=== PATIENT | female | born 1945 | race Caucasian/White ===

== ENCOUNTER 2019-09-07 10:57 | Emergency (ER) | payer MEDICARE ==
[~2019-09-07] VITALS: Ht 162.6 cm; Wt 57.8 kg
[2019-09-07 13:55] LABS: BASOPHILS % (AUTO) 0.6 % (0-1); EOSINOPHILS # (AUTO) 0.1 X10'3 (0-0.9); EOSINOPHILS % (AUTO) 1.5 % (0-6); HEMATOCRIT 39.2 % (35.0-45.0); HEMOGLOBIN 13.5 g/dl (12.0-16.0); LYMPHOCYTES # (AUTO) 1.5 X10'3 (1.1-4.8); LYMPHOCYTES % (AUTO) 20.8 % (21-51); MEAN CORPUSCULAR HGB CONC 34.5 g/dL (33.0-36.5); MEAN PLATELET VOLUME 7.6 FL (7.4-10.4); MONOCYTES # (AUTO) 0.7 X10'3 (0-0.9); MONOCYTES % (AUTO) 9.5 % (2-12); NEUTROPHILS # (AUTO) 4.7 X10'3 (1.8-7.7); NEUTROPHILS % (AUTO) 67.6 % (42-75); PLATELET COUNT 208 X10'3 (140-440); RED BLOOD COUNT 4.22 X10'6 (4.20-5.60); RED CELL DISTRIBUTION WIDTH 13.4 % (11.5-14.5)
[2019-09-07 14:09] LABS: ALANINE AMINOTRANSFERASE 19 U/L (12-78); ALBUMIN 3.4 G/DL (3.4-5.0); ALKALINE PHOSPHATASE 60 IU/L (46-116); ANION GAP 7 (8-16); ASPARTATE AMINO TRANSFERASE 17 U/L (10-37); BILIRUBIN,TOTAL 0.4 MG/DL (0.1-1.0); BLOOD UREA NITROGEN 22 MG/DL (7-18); BUN/CREATININE RATIO 23.2 (6.6-38.0); CALCIUM 9.2 MG/DL (8.5-10.1); CHLORIDE 103 MMOL/L (99-107); CREATININE 0.95 MG/DL (0.40-0.90); GLUCOSE 88 MG/DL (70-104); MAGNESIUM 1.9 MG/DL (1.5-2.4); POTASSIUM 3.9 MMOL/L (3.5-5.1); SODIUM 141 MMOL/L (135-145); TOTAL CARBON DIOXIDE 31.5 MMOL/L (24-32); TOTAL PROTEIN 6.9 G/DL (6.4-8.2); eGFR 58 ML/MIN
[2019-09-07 17:00] VITALS: BP 154/57
== END 2019-09-07 18:10 | disposition home or self-care (01) ==
LOC: ER 10:58
DX: M25.511 Pain in right shoulder (principal); R20.2 Paresthesia of skin; R20.0 Anesthesia of skin; I10 Essential (primary) hypertension; Z88.2 Allergy status to sulfonamides; Z98.890 Other specified postprocedural states; Z90.49 Acquired absence of other specified parts of digestive tract
CPT/HCPCS: 36415; 80053; 83735; 84484; 85025; 93005; 99284

== ENCOUNTER 2020-09-20 09:03 | Emergency (ER) | payer MEDICARE ==
[~2020-09-20] VITALS: Ht 162.6 cm; Wt 56.8 kg
[2020-09-20 09:25] VITALS: BP 142/78
== END 2020-09-20 11:00 | disposition home or self-care (01) ==
LOC: ER 09:04
DX: J02.9 Acute pharyngitis, unspecified (principal); B34.9 Viral infection, unspecified; R42 Dizziness and giddiness; Z20.828 Contact with and (suspected) exposure to other viral communicable diseases; I10 Essential (primary) hypertension; Z90.89 Acquired absence of other organs; Z88.5 Allergy status to narcotic agent; Z88.2 Allergy status to sulfonamides
CPT/HCPCS: 36415; 87635; 99283

== ENCOUNTER 2023-07-07 17:16 | Emergency (ER) | payer MEDICARE ==
[~2023-07-07] VITALS: Ht 160 cm; Wt 60.0 kg
[2023-07-07 17:26] VITALS: TEMP 98.8
[2023-07-07 17:34] LABS: BASOPHILS % (AUTO) 0.7 % (0-1); EOSINOPHILS # (AUTO) 0.1 X10'3 (0-0.9); EOSINOPHILS % (AUTO) 0.9 % (0-6); HEMATOCRIT 41.6 % (35.0-45.0); HEMOGLOBIN 13.9 g/dl (12.0-16.0); LYMPHOCYTES # (AUTO) 1.3 X10'3 (1.1-4.8); LYMPHOCYTES % (AUTO) 18.6 % (21-51); MEAN CORPUSCULAR HEMOGLOBIN 31.4 PG (27.0-31.0); MEAN CORPUSCULAR HGB CONC 33.5 g/dL (33.0-36.5); MEAN CORPUSCULAR VOLUME 93.7 FL (78-98); MEAN PLATELET VOLUME 7.4 FL (7.4-10.4); MONOCYTES # (AUTO) 0.8 X10'3 (0-0.9); MONOCYTES % (AUTO) 10.9 % (2-12); NEUTROPHILS % (AUTO) 68.9 % (42-75); PLATELET COUNT 211 X10'3 (140-440); RED BLOOD COUNT 4.44 X10'6 (4.20-5.60); RED CELL DISTRIBUTION WIDTH 13.3 % (11.5-14.5); WHITE BLOOD COUNT 7.2 X10'3 (4.5-11.0)
[2023-07-07 17:47] LABS: ALANINE AMINOTRANSFERASE 21 U/L (12-78); ALBUMIN 3.8 G/DL (3.4-5.0); ALBUMIN/GLOBULIN RATIO 1.1 (1.1-1.5); ALKALINE PHOSPHATASE 88 IU/L (46-116); ANION GAP 11 (8-16); ASPARTATE AMINO TRANSFERASE 24 U/L (10-37); BILIRUBIN,TOTAL 0.3 MG/DL (0.1-1.0); BLOOD UREA NITROGEN 16 MG/DL (7-18); BUN/CREATININE RATIO 14.4 (10.0-20.0); CALCIUM 9.6 MG/DL (8.5-10.1); CHLORIDE 103 MMOL/L (99-107); CREATININE 1.11 MG/DL (0.40-0.90); GLUCOSE 113 MG/DL (70-104); POTASSIUM 3.9 MMOL/L (3.5-5.1); SODIUM 143 MMOL/L (135-145); TOTAL CARBON DIOXIDE 28.7 MMOL/L (24-32); TOTAL PROTEIN 7.4 G/DL (6.4-8.2); eCRCL 35 ML/MIN; eGFR 48 ML/MIN
[2023-07-07 17:56] LABS: PRO BRAIN NATRIURETIC PEPTIDE 512 PG/ML (0-450)
[2023-07-07 22:34] LABS: FREE T4 (FREE THYROXINE) 0.91 NG/DL (0.73-1.40); THYROID STIMULATING HORMONE 2.29 ulU/ml (0.34-4.50)
[2023-07-07 23:12] VITALS: BP 184/94; PULSE 93; RESP 18; O2SAT 96
== END 2023-07-07 23:16 | disposition home or self-care (01) ==
LOC: ER 17:17
DX: R00.2 Palpitations (principal); R00.0 Tachycardia, unspecified; I10 Essential (primary) hypertension; Z88.5 Allergy status to narcotic agent; Z79.899 Other long term (current) drug therapy; Z88.2 Allergy status to sulfonamides
CPT/HCPCS: 36415; 71045; 80053; 83880; 84439; 84443; 84484; 85025; 93005; 99285

== ENCOUNTER 2023-07-28 11:47 | Day surgery (SDC) | payer MEDICARE ==
[2023-07-24 11:01] LABS: BASOPHILS % (AUTO) 0.6 % (0-1); EOSINOPHILS # (AUTO) 0.1 X10'3 (0-0.9); EOSINOPHILS % (AUTO) 1.3 % (0-6); HEMATOCRIT 39.6 % (35.0-45.0); HEMOGLOBIN 12.9 g/dl (12.0-16.0); LYMPHOCYTES % (AUTO) 14.6 % (21-51); MEAN CORPUSCULAR HEMOGLOBIN 31.1 PG (27.0-31.0); MEAN CORPUSCULAR HGB CONC 32.6 g/dL (33.0-36.5); MEAN CORPUSCULAR VOLUME 95.4 FL (78-98); MEAN PLATELET VOLUME 7.7 FL (7.4-10.4); MONOCYTES # (AUTO) 0.5 X10'3 (0-0.9); MONOCYTES % (AUTO) 7.4 % (2-12); NEUTROPHILS # (AUTO) 5.2 X10'3 (1.8-7.7); NEUTROPHILS % (AUTO) 76.1 % (42-75); PLATELET COUNT 195 X10'3 (140-440); RED BLOOD COUNT 4.15 X10'6 (4.20-5.60); RED CELL DISTRIBUTION WIDTH 13.5 % (11.5-14.5); WHITE BLOOD COUNT 6.8 X10'3 (4.5-11.0)
[2023-07-24 11:11] LABS: APTT 25 SECONDS (22-32)
[2023-07-24 11:17] LABS: ALBUMIN 3.5 G/DL (3.4-5.0); ANION GAP 7 (8-16); BLOOD UREA NITROGEN 14 MG/DL (7-18); BUN/CREATININE RATIO 13.9 (10.0-20.0); CALCIUM 9.4 MG/DL (8.5-10.1); CHLORIDE 106 MMOL/L (99-107); CHOL/HDL RATIO 1.9 (0.00-4.99); CHOLESTEROL 163 MG/DL (0-200); CREATININE 1.01 MG/DL (0.40-0.90); GLUCOSE 95 MG/DL (70-104); HDL CHOLESTEROL 84 MG/DL (35-60); LDL CHOLESTEROL 63 MG/DL (50-100); POTASSIUM 4.1 MMOL/L (3.5-5.1); SODIUM 143 MMOL/L (135-145); TOTAL CARBON DIOXIDE 29.7 MMOL/L (24-32); TRIGLYCERIDES 53 MG/DL (20-135); eGFR 53 ML/MIN
[2023-07-28] VITALS (7 sets, daily range): BP systolic 148–166; BP diastolic 74–95; PULSE 65–79; RESP 16; TEMP 99; O2SAT 95–98
[~2023-07-28 11:47] MED LIST: LIDOcaine 1% (10mg/ml) 2ml vial ONE; fentaNYL/PF 50MCG/1 ML 2ML syringe ONE; heparin 1,000unit/ml 10ml vial 10 ML ONE; iohexol 350MG/ML 100ml bottle IV ONE; midazolam 1 mg/ML 2ml injection ONE; nitroGLYCERIN 500mcg/5mL D5W 5 ML IV ONE; verapamil 2.5 mg/ml inj IV ONE
[2023-07-28] MEDS ORDERED: diphenhydrAMINE 25mg capsule PO PRN (12:30)
[2023-07-28] MEDS ORDERED: normal saline 1,000 ML IV SCH (12:30)
[2023-07-28] MEDS ORDERED: LORazepam 0.5 MG tablet PO PRN (12:30)
[2023-07-28] MEDS ORDERED: BACL-11 PO (12:39)
[2023-07-28] MEDS ORDERED: MULT-1085 PO (12:39)
[2023-07-28] MEDS ORDERED: TEMA30CA PO (12:39)
[2023-07-28] MEDS ORDERED: ATEN-169 PO (12:39)
[2023-07-28] MEDS ORDERED: PREVCR VG (12:39)
[2023-07-28] MEDS ORDERED: ASPI81TA52 PO (12:39)
[2023-07-28] MEDS ORDERED: SIMV-341 PO (12:39)
[2023-07-28 14:53] LABS: ISTAT HGB ART 11.9 g/dl (12.0-16.0); ISTAT Hct ART 35 %PCV (35-45); ISTAT O2 SATURATION ARTERIAL 71 % (95-98); ISTAT SOURCE ART
[2023-07-28 15:24] LABS: ISTAT HGB MIX 11.9 g/dl (12.0-16.0); ISTAT Hct MIX 35 %PCV (35-45); ISTAT O2 SATURATION MIX VENOUS 71 % (60-80); ISTAT SOURCE BLNK
[2023-07-28] MEDS ORDERED: HYDROcodone/acetaminophen 5mg/325mg tablet PO PRN (15:50)
[2023-07-28] MEDS ORDERED: HYDROcodone/acetaminophen 10/325mg tab PO PRN (15:50)
== END 2023-07-28 17:10 | disposition home or self-care (01) ==
LOC: SSTAY O 11:47
PROVIDERS: ATTEND Student in an Organized Health Care Education/Training Program
DX: I35.0 Nonrheumatic aortic (valve) stenosis (principal); I25.10 Atherosclerotic heart disease of native coronary artery without angina pectoris; I10 Essential (primary) hypertension; E78.5 Hyperlipidemia, unspecified; I25.2 Old myocardial infarction; I44.7 Left bundle-branch block, unspecified; Z85.89 Personal history of malignant neoplasm of other organs and systems; Z90.89 Acquired absence of other organs; Z98.890 Other specified postprocedural states; Z86.73 Personal history of transient ischemic attack (TIA), and cerebral infarction without residual deficits; Z86.19 Personal history of other infectious and parasitic diseases; Z79.899 Other long term (current) drug therapy; Z79.82 Long term (current) use of aspirin; Z87.891 Personal history of nicotine dependence; Z88.5 Allergy status to narcotic agent; Z88.2 Allergy status to sulfonamides; Z79.01 Long term (current) use of anticoagulants
CPT/HCPCS: 36415; 80048; 80061; 82803; 85014; 85025; 85610; 85730; 93005; 93456; J1644; J2250; J3010; J3490; J7030; Q9967; 99152; 99153; A6258; A6402; C1751; C1894

== ENCOUNTER 2023-09-09 10:26 | Outpatient (CLI) | payer MEDICARE ==
[~2023-09-09 10:26] MED LIST changes: +ASPI81TA52 PO; +ATEN-169 PO; +BACL-11 PO; -LIDOcaine 1% (10mg/ml) 2ml vial ONE; +MULT-1085 PO; +PREVCR VG; +SIMV-341 PO; +TEMA30CA PO; -fentaNYL/PF 50MCG/1 ML 2ML syringe ONE; -heparin 1,000unit/ml 10ml vial 10 ML ONE; -iohexol 350MG/ML 100ml bottle IV ONE; -midazolam 1 mg/ML 2ml injection ONE; -nitroGLYCERIN 500mcg/5mL D5W 5 ML IV ONE; -verapamil 2.5 mg/ml inj IV ONE
[2023-09-09 11:00] LABS: BASOPHILS % (AUTO) 0.5 % (0-1); EOSINOPHILS # (AUTO) 0.1 X10'3 (0-0.9); EOSINOPHILS % (AUTO) 1.1 % (0-6); HEMATOCRIT 39.7 % (35.0-45.0); HEMOGLOBIN 13.1 g/dl (12.0-16.0); LYMPHOCYTES % (AUTO) 14.9 % (21-51); MEAN CORPUSCULAR HEMOGLOBIN 31.2 PG (27.0-31.0); MEAN CORPUSCULAR VOLUME 94.6 FL (78-98); MEAN PLATELET VOLUME 7.7 FL (7.4-10.4); MONOCYTES # (AUTO) 0.5 X10'3 (0-0.9); MONOCYTES % (AUTO) 7.8 % (2-12); NEUTROPHILS % (AUTO) 75.7 % (42-75); PLATELET COUNT 238 X10'3 (140-440); RED BLOOD COUNT 4.19 X10'6 (4.20-5.60); RED CELL DISTRIBUTION WIDTH 13.3 % (11.5-14.5); WHITE BLOOD COUNT 6.6 X10'3 (4.5-11.0)
[2023-09-09 11:36] LABS: ALANINE AMINOTRANSFERASE 21 U/L (12-78); ALBUMIN 3.6 G/DL (3.4-5.0); ALBUMIN/GLOBULIN RATIO 1.1 (1.1-1.5); ALKALINE PHOSPHATASE 79 IU/L (46-116); ANION GAP 9 (8-16); ASPARTATE AMINO TRANSFERASE 20 U/L (10-37); BILIRUBIN,TOTAL 0.3 MG/DL (0.1-1.0); BLOOD UREA NITROGEN 21 MG/DL (7-18); BUN/CREATININE RATIO 20.6 (10.0-20.0); CALCIUM 9.7 MG/DL (8.5-10.1); CHLORIDE 102 MMOL/L (99-107); CREATININE 1.02 MG/DL (0.40-0.90); GLUCOSE 81 MG/DL (70-104); POTASSIUM 4.5 MMOL/L (3.5-5.1); SODIUM 140 MMOL/L (135-145); TOTAL CARBON DIOXIDE 29.1 MMOL/L (24-32); TOTAL PROTEIN 6.8 G/DL (6.4-8.2); eGFR 52 ML/MIN
[2023-09-09] MEDS ORDERED: IODIXANOL 320 MG/ML INFUS..BTL 100ML IV ONE (12:17)
[2023-09-09 12:21] LABS: APTT 24 SECONDS (22-32)
== END 2023-09-09 23:59 | disposition home or self-care (01) ==
LOC: RAD 10:26
PROVIDERS: ATTEND Internal Medicine Cardiovascular Disease
DX: I35.0 Nonrheumatic aortic (valve) stenosis (principal); I65.29 Occlusion and stenosis of unspecified carotid artery; M47.814 Spondylosis without myelopathy or radiculopathy, thoracic region; K57.30 Diverticulosis of large intestine without perforation or abscess without bleeding; R06.02 Shortness of breath
CPT/HCPCS: 36415; 71046; 71275; 74174; 75572; 80053; 83880; 85025; 85610; 85730; 94010; 94727; 94729; J3490; Q9967

== ENCOUNTER 2024-06-06 10:18 | Day surgery (SDC) | payer MEDICARE ==
[~2024-06-06] VITALS: Ht 160 cm; Wt 56.3 kg
[2024-06-06] VITALS (11 sets, daily range): BP systolic 125–195; BP diastolic 47–94; PULSE 65–92; RESP 12–16; TEMP 98.2; O2SAT 95–97
[~2024-06-06 10:18] MED LIST changes: +ASPI-611 PO; -ASPI81TA52 PO; -ATEN-169 PO; -BACL-11 PO; +BACL10TA2 PO; +BIOT5000 PO; +CAL1TABL8 PO; +CRAN450T4 PO; +LISI2.5T14 PO; +LUTE1CAP5 PO; +METO25TA6 PO; +OMEG-166 PO; -SIMV-341 PO; +SIMV10TA98 PO
[2024-06-06] MEDS ORDERED: normal saline 1000ml 1,000 ML IV SCH (10:40)
[2024-06-06] MEDS ORDERED: LOSA-415 PO (10:59)
[2024-06-06] MEDS ORDERED: METO50TA16 PO (10:59)
[2024-06-06] MEDS: fentaNYL/PF 50MCG/1 ML 2ML syringe IV ONE (15:24)
[2024-06-06] MEDS: MIDAZolam 1mg/ml 10ml vial IV ONE (15:24)
== END 2024-06-06 16:05 | disposition home or self-care (01) ==
LOC: SSTAY O 10:18
PROVIDERS: ATTEND Student in an Organized Health Care Education/Training Program
DX: I08.0 Rheumatic disorders of both mitral and aortic valves (principal); I11.9 Hypertensive heart disease without heart failure; E78.00 Pure hypercholesterolemia, unspecified; Z79.82 Long term (current) use of aspirin; Z79.899 Other long term (current) drug therapy; Z95.4 Presence of other heart-valve replacement; Z98.890 Other specified postprocedural states; Z88.1 Allergy status to other antibiotic agents; Z88.2 Allergy status to sulfonamides; Z88.5 Allergy status to narcotic agent; Z88.8 Allergy status to other drugs, medicaments and biological substances
CPT/HCPCS: 93325; C8925; J2250; J3010; J7030; 93312

== ENCOUNTER 2024-08-08 05:35 | Emergency (ER) | payer MEDICARE ==
[~2024-08-08] VITALS: Ht 160 cm; Wt 56.8 kg
[~2024-08-08 05:35] MED LIST changes: -BIOT5000 PO; -CAL1TABL8 PO; -CRAN450T4 PO; -LISI2.5T14 PO; +LOSA-415 PO; -LUTE1CAP5 PO; -MULT-1085 PO; -OMEG-166 PO
[2024-08-08 06:16] LABS: ALANINE AMINOTRANSFERASE 60 U/L (12-78); ALBUMIN 3.5 G/DL (3.4-5.0); ALKALINE PHOSPHATASE 94 IU/L (46-116); ANION GAP 4 (8-16); ASPARTATE AMINO TRANSFERASE 34 U/L (10-37); BILIRUBIN,TOTAL 0.4 MG/DL (0.1-1.0); BLOOD UREA NITROGEN 20 MG/DL (7-18); BUN/CREATININE RATIO 18.3 (10.0-20.0); CALCIUM 9.3 MG/DL (8.5-10.1); CHLORIDE 107 MMOL/L (99-107); CREATININE 1.09 MG/DL (0.40-0.90); GLUCOSE 92 MG/DL (70-104); POTASSIUM 4.2 MMOL/L (3.5-5.1); SODIUM 140 MMOL/L (135-145); TOTAL CARBON DIOXIDE 28.9 MMOL/L (24-32); eCRCL 35 ML/MIN; eGFR 48 ML/MIN
[2024-08-08 06:23] LABS: BASOPHILS % (AUTO) 1.1 % (0-1); EOSINOPHILS # (AUTO) 0.1 X10'3 (0-0.9); EOSINOPHILS % (AUTO) 3.1 % (0-6); HEMATOCRIT 39.5 % (35.0-45.0); HEMOGLOBIN 13.4 g/dl (12.0-16.0); LYMPHOCYTES # (AUTO) 1.3 X10'3 (1.1-4.8); LYMPHOCYTES % (AUTO) 31.7 % (21-51); MEAN CORPUSCULAR HEMOGLOBIN 32.5 PG (27.0-31.0); MEAN CORPUSCULAR VOLUME 95.3 FL (78-98); MEAN PLATELET VOLUME 8.3 FL (7.4-10.4); MONOCYTES # (AUTO) 0.7 X10'3 (0-0.9); MONOCYTES % (AUTO) 15.8 % (2-12); NEUTROPHILS % (AUTO) 48.3 % (42-75); PLATELET COUNT 154 X10'3 (140-440); RED BLOOD COUNT 4.14 X10'6 (4.20-5.60); RED CELL DISTRIBUTION WIDTH 13.8 % (11.5-14.5); WHITE BLOOD COUNT 4.2 X10'3 (4.5-11.0)
[2024-08-08 06:25] LABS: PRO BRAIN NATRIURETIC PEPTIDE 528 PG/ML (0-450)
[2024-08-08 08:05] VITALS: BP 133/63; PULSE 57; RESP 13; TEMP 98.4; O2SAT 99
[2024-08-08 09:49] LABS: PLATELET ESTIMATE NORMAL; POIKILOCYTOSIS FEW; TOTAL CELLS COUNTED 100
== END 2024-08-08 08:07 | disposition home or self-care (01) ==
LOC: ER 05:36
DX: R07.89 Other chest pain (principal); I10 Essential (primary) hypertension; Z88.2 Allergy status to sulfonamides; Z88.5 Allergy status to narcotic agent; Z79.82 Long term (current) use of aspirin; Z79.1 Long term (current) use of non-steroidal anti-inflammatories (NSAID); Z79.899 Other long term (current) drug therapy; Z90.49 Acquired absence of other specified parts of digestive tract
CPT/HCPCS: 36415; 71045; 80053; 83880; 84484; 85007; 85025; 93005; 99285

== ENCOUNTER 2024-10-06 10:50 | Emergency (ER) | payer MEDICARE ==
[~2024-10-06] VITALS: Ht 160 cm; Wt 53.2 kg
[2024-10-06 10:59] VITALS: TEMP 97.8
[2024-10-06 12:16] LABS: BASOPHILS % (AUTO) 0.2 % (0-1); EOSINOPHILS % (AUTO) 0.1 % (0-6); HEMATOCRIT 42.1 % (35.0-45.0); HEMOGLOBIN 14.7 g/dl (12.0-16.0); LYMPHOCYTES # (AUTO) 0.8 X10'3 (1.1-4.8); LYMPHOCYTES % (AUTO) 10.3 % (21-51); MEAN CORPUSCULAR HGB CONC 34.9 g/dL (33.0-36.5); MEAN CORPUSCULAR VOLUME 94.5 FL (78-98); MEAN PLATELET VOLUME 8.4 FL (7.4-10.4); MONOCYTES # (AUTO) 0.6 X10'3 (0-0.9); MONOCYTES % (AUTO) 8.2 % (2-12); NEUTROPHILS # (AUTO) 6.1 X10'3 (1.8-7.7); NEUTROPHILS % (AUTO) 81.2 % (42-75); PLATELET COUNT 163 X10'3 (140-440); RED BLOOD COUNT 4.45 X10'6 (4.20-5.60); RED CELL DISTRIBUTION WIDTH 13.5 % (11.5-14.5); WHITE BLOOD COUNT 7.5 X10'3 (4.5-11.0)
[2024-10-06 12:37] LABS: ANION GAP 9 (8-16); BILIRUBIN,TOTAL 0.8 MG/DL (0.1-1.0); BLOOD UREA NITROGEN 25 MG/DL (7-18); BUN/CREATININE RATIO 19.1 (10.0-20.0); CALCIUM 9.7 MG/DL (8.5-10.1); CHLORIDE 101 MMOL/L (99-107); CREATININE 1.31 MG/DL (0.40-0.90); GLUCOSE 89 MG/DL (70-104); POTASSIUM 4.4 MMOL/L (3.5-5.1); SODIUM 138 MMOL/L (135-145); TOTAL CARBON DIOXIDE 28.5 MMOL/L (24-32); TOTAL PROTEIN 7.6 G/DL (6.4-8.2); eCRCL 29 ML/MIN; eGFR 39 ML/MIN
[2024-10-06 12:38] LABS: ALANINE AMINOTRANSFERASE 30 U/L (12-78); ALBUMIN 3.8 G/DL (3.4-5.0); ALKALINE PHOSPHATASE 88 IU/L (46-116); ASPARTATE AMINO TRANSFERASE 23 U/L (10-37); LIPASE 41 U/L (16-77)
[2024-10-06 15:39] VITALS: BP 167/64; PULSE 63; RESP 18; O2SAT 98
[2024-10-06] MEDS ORDERED: ONDA-245 PO (15:41)
[2024-10-06] MEDS: normal saline 1000ml 1,000 ML IV ONE (15:43)
[2024-10-06] MEDS: ondansetron/PF 4mg/2ml inj IV ONE (15:43)
[2024-10-06] MEDS: proCHLORperazine 10 MG/2 ml inj IV ONE (17:29)
== END 2024-10-06 18:33 | disposition home or self-care (01) ==
LOC: ER 10:51
DX: R11.2 Nausea with vomiting, unspecified (principal); I10 Essential (primary) hypertension; Z88.2 Allergy status to sulfonamides; Z88.5 Allergy status to narcotic agent; Z90.49 Acquired absence of other specified parts of digestive tract; Z79.1 Long term (current) use of non-steroidal anti-inflammatories (NSAID); Z79.899 Other long term (current) drug therapy
CPT/HCPCS: 36415; 80053; 83690; 85025; 96361; 96374; 96375; 99284; J0780; J2405; J7030

== ENCOUNTER 2024-11-10 06:22 | Outpatient (CLI) | payer MEDICARE ==
[~2024-11-10 06:22] MED LIST changes: +ONDA-245 PO
== END 2024-11-10 23:59 | disposition home or self-care (01) ==
LOC: MRI02 06:22
PROVIDERS: ATTEND Neuromusculoskeletal Medicine & OMM
DX: R47.01 Aphasia (principal)
CPT/HCPCS: 70551